=== PATIENT | male | born 1970 | race Caucasian/White ===

== ENCOUNTER 2021-01-13 15:11 | Inpatient (IN) | payer OTHER ==
[~2021-01-13] VITALS: Ht 185.4 cm; Wt 96.2 kg
[2021-01-13 16:18] LABS: HEMOGLOBIN 14.8 gm/dl (14.0-17.5); RED BLOOD COUNT 4.64 M/UL (4.20-5.50); WHITE BLOOD COUNT 16.9 K/UL (4.5-11.0)
[2021-01-13 16:50] LABS: BUN/CREATININE RATIO 10 (0-10)
[2021-01-14 06:43] LABS: HEMOGLOBIN 13.5 gm/dl (14.0-17.5); RED BLOOD COUNT 4.37 M/UL (4.20-5.50)
[2021-01-14 07:32] LABS: BUN/CREATININE RATIO 11 (0-10)
[2021-01-15 05:55] LABS: HEMOGLOBIN 12.9 gm/dl (14.0-17.5); RED BLOOD COUNT 4.1 M/UL (4.20-5.50); WHITE BLOOD COUNT 16.8 K/UL (4.5-11.0)
[2021-01-15 07:25] LABS: BUN/CREATININE RATIO 16 (0-10)
[2021-01-16 06:39] LABS: HEMOGLOBIN 12.6 gm/dl (14.0-17.5); RED BLOOD COUNT 4.08 M/UL (4.20-5.50); WHITE BLOOD COUNT 14.4 K/UL (4.5-11.0)
[2021-01-16 07:11] LABS: BUN/CREATININE RATIO 12 (0-10)
[2021-01-17 04:34] LABS: HEMOGLOBIN 12.8 gm/dl (14.0-17.5); RED BLOOD COUNT 4.18 M/UL (4.20-5.50); WHITE BLOOD COUNT 14.1 K/UL (4.5-11.0)
[2021-01-17 04:58] LABS: BUN/CREATININE RATIO 11 (0-10)
[2021-01-17] MEDS ORDERED: ROXICODONE TAB 55 MG PO (14:38)
[2021-01-17] MEDS ORDERED: LEVOFLOXACIN750 MG PO (14:51)
== END 2021-01-17 16:31 | disposition home or self-care (01) | DRG 854 ==
LOC: ER1 15:11 → MED SURG 4 19:15 → CDU 19:15 → MED SURG 4 22:00
PROVIDERS: Internal Medicine; Nurse Practitioner; Orthopaedic Surgery; Physician Assistant; ADMIT Internal Medicine
PROC: 0KBD0ZZ Excision of Left Hand Muscle, Open Approach (ICD-10-PCS; 2021-01-14)
PROC: 0KBD0ZZ Excision of Left Hand Muscle, Open Approach (ICD-10-PCS; principal; 2021-01-17 13:04)
DX: A41.9 Sepsis, unspecified organism (principal); L02.512 Cutaneous abscess of left hand; E87.1 Hypo-osmolality and hyponatremia; L03.114 Cellulitis of left upper limb; I96 Gangrene, not elsewhere classified; Z20.822 Contact with and (suspected) exposure to COVID-19; R74.01 Elevation of levels of liver transaminase levels; F10.10 Alcohol abuse, uncomplicated; E86.1 Hypovolemia; E66.9 Obesity, unspecified; Z68.28 Body mass index [BMI] 28.0-28.9, adult
CPT/HCPCS: 36415; 71045; 80053; 80202; 83036; 83605; 85025; 85027; 85610; 85652; 85730; 86140; 86850; 86900; 86901; 87040; 87070; 87077; 87186; 87205; 93005; 96365; 96366; 96375; 99284; J0692; J1100; J1170; J1885; J2001; J2250; J2270; J2405; J2704; J3010; J3370; J7030; J7070; J7120; U0002

== ENCOUNTER → 2021-01-21 | Outpatient (CLI) | payer OTHER ==
[~2021-01-21] MED LIST: LEVOFLOXACIN750 MG PO; ROXICODONE TAB 55 MG PO
[2021-01-21 14:35] LABS: RED BLOOD COUNT 4.88 M/UL (4.20-5.50); WHITE BLOOD COUNT 15.3 K/UL (4.5-11.0)
[2021-01-21 14:50] LABS: BUN/CREATININE RATIO 18 (0-10)
== END ==
LOC: LAB 13:32
PROVIDERS: Internal Medicine
DX: L02.91 Cutaneous abscess, unspecified (principal)
CPT/HCPCS: 36415; 80048; 85025; 85652; 86140